=== PATIENT | male | born 1995 | race Caucasian/White ===

== ENCOUNTER 2022-06-08 13:46 | Emergency (ER) | payer OTHER ==
[~2022-06-08] VITALS: Ht 172.7 cm; Wt 144.8 kg
[2022-06-08 14:03] VITALS: BP 185/100
--- NOTE | 2022-06-08 14:11 | NUR ---
PT AMBULATED TO ER BED 4 WITH A STEADY GAIT.
--- NOTE | 2022-06-08 14:23 | NUR ---
26 Y/O MALE C/O LEFT EYE PAIN 05/13 DESCRIBES PRESSURE X1DAY. PT SEEN BY URGENT CARE, HAD EYE EXAM WITH UV LIGHT & GOT EYE DROP. PT PRESCRIBED GENTAMYCIN AND KETOFIN EYE DROPS WITH SOME RELIEF INITIALLY AND HAS WORSENED TODAY. PT STATES +BLURRY VISION, DENIES DIZZINESS. DENIES FEVER/CHILLS. DENIES N/V/D. DENIES PMH ALLERGIES: SUDAFED
[2022-06-08] MEDS ORDERED: FLUORESCEIN OPTH STRIP 1 MG OP ONE (14:35)
[2022-06-08] MEDS ORDERED: TETRACAINE HCL/PF 0.5% OPTH 4 ML BTL OP ONE (14:35)
[2022-06-08] MEDS ORDERED: ERYT5OIN51 OP (16:01)
[2022-06-08 16:11] VITALS: BP 140/78
--- NOTE | 2022-06-08 16:11 | NUR ---
Patient discharged with v/s stable. Written and verbal after care instructions given and explained. Patient alert, oriented and verbalized understanding of instructions. Ambulatory with steady gait. All questions addressed prior to discharge. ID band removed. Patient advised to follow up with PMD. Rx of erythromycin given. Patient educated on indication of medication including possible reaction and side effects. Opportunity to ask questions provided and answered.
== END 2022-06-08 16:11 | disposition home or self-care (01) ==
LOC: MED 13:46
DX: S05.02XA Injury of conjunctiva and corneal abrasion without foreign body, left eye, initial encounter (principal); R03.0 Elevated blood-pressure reading, without diagnosis of hypertension; Z79.899 Other long term (current) drug therapy; Z88.8 Allergy status to other drugs, medicaments and biological substances; X58.XXXA Exposure to other specified factors, initial encounter; Y93.89 Activity, other specified; Y92.89 Other specified places as the place of occurrence of the external cause; Y99.8 Other external cause status
CPT/HCPCS: 99283